=== PATIENT | female | born 1995 | race Caucasian/White ===

== ENCOUNTER 2017-12-12 04:46 | Outpatient (REF) | payer SELFPAY ==
[2017-12-12 06:42] LABS: Pregnancy, Serum, hCG Quali. NEGATIVE Negative (0-9 Nonpreg)
[2017-12-12 08:28] LABS: HIV - WCH Non-Reactive (Nonreactive)
== END 2017-12-12 08:00 | disposition home or self-care (01) ==
LOC: EDREF 04:46
PROVIDERS: Emergency Medicine
DX: Z04.41 Encounter for examination and observation following alleged adult rape (principal)
CPT/HCPCS: 84703; 86703